=== PATIENT | male | born 1960 | race Caucasian/White ===

== ENCOUNTER 2016-10-30 09:52 | Emergency (ER) | payer OTHER ==
[~2016-10-30] VITALS: Ht 177.8 cm; Wt 102.1 kg
[2016-10-30 09:57] VITALS: BP 190/95
--- NOTE | 2016-10-30 10:00 | NUR ---
PATIENT ARRIVED TO ER COMPLAINING OF CHEST PAIN AND PRESSURE. I IMMEDIATELY DID A 12 LEAD EKG AND SHOWED IT TO DR GIVENS.
--- NOTE | 2016-10-30 10:07 | NUR ---
PT IS IN ROOM #1A. DR GIVENS EVALUATED THE PT.
[2016-10-30] MEDS ORDERED: AMLO5TAB2 PO (10:10)
[2016-10-30] MEDS ORDERED: METF-495 PO (10:10)
[2016-10-30] MEDS ORDERED: QUIN20TA31 PO (10:10)
[2016-10-30] MEDS ORDERED: SIMV20TA6 PO (10:10)
[2016-10-30] MEDS ORDERED: ASPIRIN 325 MG TABLET PO ONE (10:15)
[2016-10-30] MEDS ORDERED: NITROGLYCERIN 0.3 MG/TAB BOTTLE SL ONE ×2 (10:15→10:22)
[2016-10-30] MEDS ORDERED: ASPIRIN 325 MG TABLET ONE (10:22)
[2016-10-30 10:24] LABS: BASOPHILS # (AUTO) 0.1 K/uL (0.0-0.2); BASOPHILS % (AUTO) 0.9 % (0.0-2.0); EOSINOPHILS # (AUTO) 0.2 K/uL (0.0-0.7); EOSINOPHILS % (AUTO) 2.8 % (0.0-7.0); HEMATOCRIT 44.3 % (40.0-50.0); HEMOGLOBIN 14.4 g/dL (14.0-18.0); LYMPHOCYTES # (AUTO) 2.6 K/uL (0.8-4.8); LYMPHOCYTES % (AUTO) 33.6 % (20.5-51.5); MEAN CORPUSCULAR HEMOGLOBIN 27.5 uug (27.0-31.0); MEAN CORPUSCULAR HGB CONC 33 g/dL (32.0-37.0); MEAN CORPUSCULAR VOLUME 84.5 fL (82.0-92.0); MONOCYTES # (AUTO) 0.5 K/uL (0.1-1.30); NEUTROPHILS # (AUTO) 4.5 K/uL (1.8-8.9); NEUTROPHILS % (AUTO) 56.7 % (38.5-71.5); PLATELET COUNT (AUTO) 355 K/uL (150-450); RED BLOOD CELL COUNT(AUTO) 5.24 MIL/uL (4.70-6.10); RED CELL DISTRIBUTION WIDTH 12.1 % (11.5-14.5); WHITE BLOOD COUNT (AUTO) 7.9 K/uL (4.0-11.2)
[2016-10-30 10:33] LABS: CALCIUM 9.1 mg/dL (8.5-10.1); CREATININE 0.9 mg/dL (0.6-1.3); POTASSIUM 4.1 mmol/L (3.5-5.1)
[2016-10-30 10:39] LABS: ALBUMIN 3.9 g/dL (3.4-5.0); BILIRUBIN,TOTAL 0.6 mg/dL (0.2-1.0); TOTAL PROTEIN, SERUM 7.3 g/dL (6.4-8.2)
[2016-10-30] MEDS ORDERED: INSULIN REGULAR, HUMAN 1,000 UNITS/10 ML VIAL SUBCUT ONE (10:45)
[2016-10-30] MEDS ORDERED: INSULIN REGULAR, HUMAN 300 UNIT/3 ML VIAL ONE (10:48)
[2016-10-30 11:34] LABS: *BILIRUBIN,URIN NEGATIVE (NEGATIVE); *BLOOD, URINE NEGATIVE (NEGATIVE); *CLARITY,URINE CLEAR (CLEAR); *COLOR,URINE YELLOW (YELLOW); *KETONES,URINE TRACE (NEGATIVE); *PROTEIN,URINE NEGATIVE (NEGATIVE); *UROBILINOGEN,URINE 0.2 E.U./dl (NORMAL); LEUKOCYTE ESTERASE ,URINE NEGATIVE (NEGATIVE); NITRITE, URINE NEGATIVE (NEGATIVE); PH,URINE 6.5 (5.0-8.0)
[2016-10-30] MEDS ORDERED: MECLIZINE HCL 25 MG TABLET PO ONE (11:45)
[2016-10-30] MEDS ORDERED: MECLIZINE HCL 25 MG TABLET ONE (12:07)
[2016-10-30 12:14] LABS: UGLUCOSE 2+ (NEGATIVE)
[2016-10-30 12:17] LABS: BACTERIA,URINE NONE SEEN /HPF (NONE SEEN); RBC,URINE NONE SEEN /HPF (0-3); SQUAMOUS EPITHELIAL CELL,UR FEW /HPF (NONE SEEN); WBC,URINE 0-3 /HPF (0-3)
--- NOTE | 2016-10-30 13:14 | NUR ---
pt is going to be transfered to [facility] according to his insurance company request. dr Carpenter talked to dr Way about pt's transfer.
[2016-10-30] MEDS ORDERED: HYDROCODONE/APAP 5-325MG TABLET PO ONE (13:15)
--- NOTE | 2016-10-30 14:28 | NUR ---
pt was transfered to [facility] via [facility] ambulance. report was given to ambulance RN. report was given to hospital rn
[2016-10-30 14:49] LABS: CREATINE KINASE MB 0.4 ng/mL (0-5.0)
== END 2016-10-30 14:37 | disposition short-term general hospital (02) ==
LOC: ER 09:52
DX: R07.9 Chest pain, unspecified (principal); R42 Dizziness and giddiness
CPT/HCPCS: 36415; 70450; 71010; 80053; 81001; 82550; 82553; 82962; 84484; 85025; 85610; 93005; 96372; 99285; A4663; J1815; J8597; 70030-TC; 70470; J7050